=== PATIENT | female | born 1945 | race Caucasian/White ===

== ENCOUNTER 2024-12-19 09:29 | Outpatient (REF) | payer MEDICARE, OTHER, SELFPAY ==
--- NOTE | ~2024-12-19 | XR_ITS ---
EXAMINATION: XR BILATERAL HIPS WITH AP PELVIS CLINICAL INFORMATION: M25.559 - Pain in unspecified hip COMPARISON: None available. TECHNIQUE: AP and frog-leg lateral views of each hip and an AP view of the pelvis. FINDINGS: Normal bone mineralization. No fracture or dislocation. No suspicious bone lesion. End-stage arthrosis of both hip joints with complete joint space loss, subchondral sclerosis and cystic changes, sclerosis and remodeling/flattening of the femoral heads . [id number] appearance. This may be inflammatory as there is a generalized paucity of productive bony changes seen. There are degenerative changes in both SI joints and the lower lumbar spine. There are vascular calcifications throughout the soft tissues. 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 Electronically signed by: Gasper Crespo MD 12/22/2024 02:15 PM EDT
--- NOTE | ~2024-12-19 | XR_ITS ---
EXAMINATION: X-ray lumbar spine 4 views. CLINICAL INFORMATION: Spinal stenosis, lumbar region. No claudication. TECHNIQUE: AP and lateral views during the neutral flexion and extension position. COMPARISON: None FINDINGS: Facet joint hypertrophy on the left side of L4-5 and L5-S1. Marginal osteophyte formation and endplate sclerosis and decreased intervertebral disc height at L4-5 and to a lesser extent throughout the vertebral bodies of the lumbar spine and lower thoracic spine. S-shaped curvature of the lower lumbar spine. No acute cortical disruption. No gross malalignment. Vascular calcifications, aorta. No lytic or blastic lesions. XR/XR lumbar spine 4V min IMPRESSION: Multilevel thoracolumbar spondylosis more conspicuous at L4-5 and L5-S1 levels without acute fracture or listhesis. Electronically signed by: Margarito Atkins MD 12/22/2024 02:16 PM EDT
--- OUTSIDE RECORDS SUMMARY | 2024-12-19 10:30 | XMS_ITS | Continuity of Care Document ---
Author Organization [facility] [address] [place] [address] Phone [phone] Care Team Providers Care Toxicologist Name Role Phone Heike Collazo M.D Care Team Informa tion Home Health Care Physician [phone] Problems Active Problems Provider Date Peripheral arterial [...] SIG Qnty Indications Order ing Provider Date Xuhkrnus7dp/0.5ML Solution Pen-Inject inject 1 pen(5mg) under the skin every week dx: e11.9 2ml Kenroy Méndez M.D. 02/21/2024 Jhhzaoj53do Tablets Kenroy Méndez M.D. 10/22/2023 Basaglar Rvqpgaz533Cnej/ML Solution Pen-Inject Inject 30 Units Subcutaneously Every Night For 30 Days 45units E11.9 Kenroy Méndez M.D. 05/31/2022 Novolog Maptwgg228Bura/ML Solution Pen-Inject Inject 4-6 Units Subcutaneously Once A Day 15units E11.Florence Méndez M.D. 05/31/2022 Losartan Dzsgoghib87mw Tablets Take 1 Tablet By Mouth Every Day Unknown Pravastatin Ejphvj16qo Tablets Take 1 Tablet By Mouth Every Day Unknown Aspirin Low Ukqo76ba Tablets DR Take 1 Tablet By Mouth Every Day Unknown Vital Signs Date Vital Result Comment 02/21/2024 2:00pm BP Systolic 166 mmHg BP Diastolic 58 mmHg Heart Rate 81 /min Height 65 inches 5'5 Weight 261.00 lb BMI (Body Mass Index) 43.4 kg/m2 Results Test Acquired Date Facility Test Result H/L Range N ote Hemoglobin A1c 06/23/2024 [facility] [address] [address] [phone] Hemoglobin A1c <pending> Urine Microalb+Creat+Ra qian RDM 06/23/2024 [facility] [address] [address] Urine Microalbumin Random <pending> Urine Microalbumin/Crea t [...] 2 diabet es mellitus without complications Z79.4 nurse auditor (current) use of insulin M19.90 Unspecified osteoart hritis, unspecified site Z98.890 Other specified post procedural states Z95.2 Presence of prosthet ic heart valve E78.00 Pure hypercholestero lemia, unspecified I25.89 Other forms of chron ic ischemic heart disease Assessments Date Code Description Provider 06/23/2024 E11.9 Type 2 diabetes mellitus wit hout complications ARIANNE Arroyo 06/23/2024 Z79.4 nurse auditor (current) use of i nsulin ARIANNE Arroyo [...] Urine Microalb+Creat+Ratio RDM, Ordered: 06/23/24 * Z79.4 nurse auditor (current) use of insulin * M19.90 Osteoarthritis * Z98.890 History of carotid endarterectomy * Z95.2 History of bioprosthetic transcatheter aortic valve implantation * E78.00 Hypercholesterolemia * I25.89 Asymptomatic coronary heart disease Functional Status Description No Information Available Mental Status Description No Information Available Referrals Description No Information Available
--- OUTSIDE RECORDS SUMMARY | 2024-12-19 10:30 | XMS_ITS | Clinical Summary ---
Author Organization [facility] Address [address] [facility] [address] [place] [address] Phone Care Team Providers Care Brand Designer Name Role Phone Heike Baird MD Primary [...] PM EDT) Hemoglobin A1C 6.4(H) (4.0-5.6) % [facility] Comment: MONITORING: In known diabetic patients, hemoglobin A1c targets should be discussed with health care provider. DIAGNOSTIC USE: ??The [place] Diabetes Association (ADA) and the World Health [...] Supplement 1 Testing performed or reported by [facility], a Service of [facility], [address] [place] [address] Ge Boswell MD, Vp [employer] [facility]# [id number] Blood (Blood, Venous) 03/23/2022 2:02 PM EDT 03/23/2022 2:12 PM EDT Wilian Sol MD LAB BLOOD ORDERABLES Final Re sult [facility] from Last 3 Months or Most Recently Relevant to Health Maintenance Insurance Medicare [facility] Medicare Unicare Care Teams Brand Designer Relationship Specialty Start Date End Date Heike Baird MD PCP - General Internal Medicine 03/21/23
--- OUTSIDE RECORDS SUMMARY | 2024-12-19 10:30 | XMS_ITS | Clinical Summary ---
Author Organization [address] [facility] Address [address] [place] [address] Phone Care Team Providers Care Ux Ui Designer Name Role Phone Heike Baird MD Primary Care Prov ider Allergies Active [...] replacement ) 02/15/2022 Overview (06/13/2024): Done at [facility] on 02/08/22 with KM - indications: atigue, [...] a further discussion with Dr. Méndez, her destaticizer feeder. Assessment & Plan (12/08/2024 11:48 AM EDT): [...] neuropathy, without long-term current use of insulin ([facility] V24, [facility] V28) 03/30/2009 Encounters Date Type Department Care Team Description 12/10/2024 1:45 PM EDT Consult Urogynecology - [address] [phone] Brenda Zambrano MD Postmenopausal bleeding (Primary Dx); Endometrial polyp 12/08/2024 11:20 AM EDT Consult [facility] Cardiology [facility] - [facility] [address] [facility] [address] [place] [phone] Bella Altamirano MD Coronary artery disease involving [place] coronary artery of [place] heart with other form of angina pectoris ([facility] V24) (Primary Dx); Congestive heart failure, unspecified HF chronicity, unspecified heart failure type ([facility] V24, [facility] V28); S/P TAVR (transcatheter aortic valve replacement); Pre-op evaluation 12/04/2024 10:00 AM EDT Consult Adult Medicine - [place] [address] [place] [phone] Heike Colby MD Preop examination (Primary Dx); Uterine polyp 12/01/2024 Telephone [facility] Cardiology [facility] - [facility] [address] [facility] [address] [place] [phone] Bella Altamirano MD Pre-op Visit 11/25/2024 Telephone Urogynecology - [address] [phone] Marti Martin MA scheduling conflict 11/24/2024 Telephone Urogynecology - [address] [phone] Marti Martin MA appt. change 11/13/2024 Telephone Adult Medicine - [place] [address] [place] [phone] Tanna Rodrigues, RANDY annual wellness visit scheduling 10/27/2024 8:20 AM EST Office Visit Endocrinology - [address] [phone] Rosa Maria Johansen PA Diabetes 1.5, managed as type 2 ([facility] V24, [facility] V28) (Primary Dx); Hyperlipidemia, unspecified hyperlipidemia type; Stage 3a chronic kidney disease ([facility] V24, [facility] V28); Hypertension, unspecified type 10/27/2024 Telephone Endocrinology - [address] [phone] Rosa Maria Johansen PA Medication Problem 10/24/2024 12:43 PM EST - 10/24/2024 11:59 PM EST [facility] [address] [phone] Other screening mammogram Discharge Disposition: Home or Self Care 10/13/2024 Telephone Adult Medicine [facility] [address] [place] [address] Bibi Becker LPN 10/07/2024 Telephone Adult Medicine [facility] [address] [place] [address] Tanna Rodrigues, RN urinary issues 09/29/2024 Telephone Urogynecology - [address] [phone] Marti Martin MA schedule surgery 09/29/2024 Telephone Urogynecology - [address] [phone] Marti Martin MA schedule surgery 09/23/2024 Telephone Urogynecology - [address] [phone] Brenda Zambrano MD from Last 3 Months [...] PREVIOUS SURGERY OTHER SURGICAL HISTORY 02/08/2022 PROCEDURE: ID TRANSCATHETER TRANSAPICAL REPLACEMT AORTIC VALVE; COMMENT: Transfemoral TAVR, aortic valve replacment. OTHER SURGICAL HISTORY 01/09/2024 Right PROCEDURE: ID TEAEC W/PATCH GRF CAROTID VERTB SUBCLAV NECK INC OTHER SURGICAL HISTORY 01/09/2024 Right PROCEDURE: ID BX/EXC LYMPH NODE OPEN DEEP CERVICAL NODE [...] care for your loved ones. For example, salesperson children's shoes or elderly care for an older adult? [...] EDT Office Visit Adult Medicine - [address] [phone] Heike Baird MD [address] [place] [address] 12/29/2024 9:30 AM EDT Hospital Encounter [address] [phone] Brenda Zambrano MD [address] [place] [address] 12/29/2024 9:30 AM EDT - 12/29/2024 11:00 AM EDT Surgery [address] [phone] Brenda Zamrbano MD [address] [place] [address] HYSTEROSCOPY [13190 (CPT??)] 01/14/2025 3:00 PM EDT Office Visit Urogynecology [address] [phone] Brenda Zambrano MD [address] [place] [address] 01/27/2025 8:20 AM EDT Office Visit Endocrinology - [facility] [address] [place] [address] Rosa Maria Johansen PA [address] [place] [address] 04/06/2025 8:30 AM EDT Ancillary Procedure [facility] [address] [place] [address] 05/14/2025 10:00 AM EDT Office Visit Vascular Surgery - [place] [address] [place] [address] Flores Verdugo PA [address] [place] [address] 06/23/2025 10:40 AM EDT Office Visit [facility] Cardiology [facility] [address] [facility] [address] [place] [address] Diana Harley, GIANNI [address] [place] [address] Scheduled Procedures Name Priority Associated Diagnoses Date/Ti [...] 11:08 AM EDT Coronary artery disease involving [place] coronary artery of [place] heart with other form of angina pectoris ([facility] V24) BASIC METABOLIC PANEL Routine 11/27/2024 3:09 PM EDT Diabetes 1.5, managed as type 2 ([facility] V24, [facility] V28) Stage 3a chronic kidney disease ([facility] V24, [facility] V28) CULTURE URINE Routine 11/27/2024 3:09 PM EDT Urinary tract infection without hematuria, site unspecified Frequency of urination MG MAMMO DIGITAL SCREENING W ARISTIDES BILAT Routine 10/24/2024 1:25 PM EST Other screening mammogram CULTURE URINE Routine 10/09/2024 11:43 AM EST Urinary tract infection HEMOGLOBIN A1C Routine 10/09/2024 11:10 AM EST Diabetes 1.5, managed as type 2 ([facility] V24, [facility] V28) LIPID PANEL WITH REFLEX TO DIRECT [...] GEMUSE QTc 435 ms GEMUSE P Wave [place] 58 degrees GEMUSE R [place] 0 degrees GEMUSE T [place] 60 degrees GEMUSE ECG Interpretation Normal sinus [...] of2 resultswithin the time period is included. [facility] Culture, Urine 50,000-99,000 CFU/mL Mixed bacterial morphotypes present suggestive of possible contamination during collection. Suggest appropriate recollection if clinically indicated. 11/28/2024 1:[address] [facility] Urine Urine specimen obtained by clean catch procedure / Unknown Non-blood Collection / Unknown 11/27/2024 3:09 PM EDT 11/27/2024 3:09 PM EDT Mariann Guy NP LAB MICROBIOLOGY - GENERAL ORDERABLES Final Result [facility] [address] [place] [address], [place] [phone] * (ABNORMAL) Basic metabolic panel (11/27/2024 3:09 PM EDT) [facility] Sodium 139 133 - 145 mmol/L LAB CHEMISTRY METHOD 11/27/2024 6:34 PM [facility] Potassium 5.4 3.5 - 5.5 mmol/L LAB CHEMISTRY METHOD 11/27/2024 6:34 PM [facility] Chloride 108 96 - 110 mmol/L LAB CHEMISTRY METHOD 11/27/2024 6:34 PM [facility] CO2 25 21 - 32 mmol/L LAB CHEMISTRY METHOD 11/27/2024 6:34 PM [facility] Anion Gap 6 3 - 11 LAB CHEMISTRY METHOD 11/27/2024 6:34 PM [facility] Glucose 103(H) 70 - 100 mg/dL LAB CHEMISTRY METHOD 11/27/2024 6:34 PM [facility] BUN 27(H) 5 - 25 mg/dL LAB CHEMISTRY METHOD 11/27/2024 6:34 PM [facility] Creatinine 1.08 0.50 - 1.10 mg/dL LAB CHEMISTRY METHOD 11/27/2024 6:34 PM [facility] eGFR 53(L) >=60 mL/min/1. 73m2 LAB CHEMISTRY METHOD 11/27/2024 6:34 PM [facility] Comment:Calculation based on the??Chronic Kidney Disease Epidemiology Collaboration (CKD-EPI) equation refit??without adjustment for race. BUN/Creatinine Ratio 25.0 LAB CHEMISTRY METHOD 11/27/2024 6:34 PM [facility] Calcium 9.2 8.5 - 10.5 mg/dL LAB CHEMISTRY METHOD 11/27/2024 6:34 PM [facility] Blood Venous blood specimen / Unknown Venipuncture / Unknown 11/27/2024 3:09 PM EDT 11/27/2024 3:09 PM EDT us Rosa Maria ACUÑA LAB BLOOD ORDERABLES Final Resul t [facility] [address] [place] [address], * MG Mammo Digital Screening w Aristides [...] Signed Date: 10/27/2024 13:40 ET Workstation ID: [id number] Transcribed By: Self Edit Transcribed Date: 10/27/2024 [...] year. Mammography location: [facility] [address] [place], [address] -------- FINAL REPORT -------- Dictated By: Aftab Spaulding Dictated Date: 10/24/2024 14:42 ET Assigned Physician: Aftab Spaulding Reviewed and Electronically Signed By: Aftab Spaulding Signed Date: 10/24/2024 14:58 ET Workstation ID: [id number] Transcribed By: Self Edit Transcribed Date: 10/24/2024 [...] LAB CHEMISTRY METHOD 10/09/2024 2:[address] [facility] Mean Bld Glu Estim. 128 mg/dL LAB CHEMISTRY METHOD 10/09/2024 2:08 PM [facility] Blood Venous blood specimen / Unknown Venipuncture / Unknown 10/09/2024 11:10 AM EST 10/09/2024 11:10 AM EST Rosa Maria ACUÑA LAB BLOOD ORDERABLES Final Resul t [facility] [address] [place] [address], [place] [phone] * Lipid panel with reflex to direct LDL (09/19/2024 11:41 AM EST) Cholesterol 140 0 - 200 mg/dL LAB CHEMISTRY METHOD 09/19/2024 6:[address] [facility] Triglycerides 81 0 - 150 mg/dL LAB CHEMISTRY METHOD 09/19/2024 6:19 PM [facility] HDL 59 >=40 mg/dL LAB CHEMISTRY METHOD 09/19/2024 6:[address] [facility] LDL Calculated 65 0 - 100 mg/dL LAB CHEMISTRY METHOD 09/19/2024 6:[address] [facility] VLDL Cholesterol Juma 16.2 mg/dL LAB CHEMISTRY METHOD 09/19/2024 6:[address] [facility] Non HDL Chol. (LDL+VLDL) 81 <145 mg/dL LAB CHEMISTRY METHOD 09/19/2024 6:[address] [facility] Chol/HDL Ratio 2.4 0.0 - 4.4 LAB CHEMISTRY METHOD 09/19/2024 6:[address] [facility] Blood Venous blood specimen / Unknown Venipuncture / Unknown 09/19/2024 11:41 AM EST 09/19/2024 11:41 AM EST Bella Altamirano MD LAB BLOOD ORDERABLES Final Resul t [facility] [address] [place] [address], * DXA BONE DENSITY STUDY 1+ SITS [...] bone mineral density by WHO criteria. The [facility] Department of Internal Medicine recommends using National [...] alternative screening schedule based on ole Conrad., [facility] September 14, 2011 for patients with [...] bone mineral density by WHO criteria. The [facility] Department of Internal Medicine recommendsusing National Osteoporosis [...] screening schedule based on erica Conrad al., [facility] for [facility] with [facility] (based [...] esult * Urine Albumin Creatinine Ratio (05/10/2023) [facility] Urine Albumin Creatinine Ratio ABSTRACTED Historical Provider HEALTH MAINTENANCE Final Result * Hepatitis C Screening (05/25/2017) [facility] Hepatitis C Screening ABSTRACTED Historical Provider HEALTH MAINTENANCE Final Result from Last 3 Months or Most Recently Relevant to Health Maintenance [facility] Directives Documents on File Type Date Recorded Patient Life Advisor Expl anation Health Care Decision (hx) 01/09/2024 HE ALTH CARE PROXY Health Care Decision (hx) 01/09/2024 HE ALTH CARE PROXY Health Care Decision (hx) 01/09/2024 HE ALTH CARE PROXY Care Teams Ux Ui Designer Relationship Specialty Start Date End Date Heike Baird MD [address] [place] [id number] PCP - General Internal Medicine 08/17/20
== END 2024-12-19 09:30 | disposition home or self-care (01) ==
LOC: HO.HOSX 09:29
PROVIDERS: PCP Internal Medicine; Visit Provider Physician Assistant
DX: M48.061 Spinal stenosis, lumbar region without neurogenic claudication (principal); M25.559 Pain in unspecified hip
CPT/HCPCS: 72110; 73522; 99202

== ENCOUNTER 2024-12-19 09:29 | Outpatient (AMB) | payer MEDICARE, OTHER, SELFPAY ==
--- NOTE | 2024-12-19 09:32 | HO.SPINEOV ---
Vital Signs 12/19/24 09:37 Height 5 ft 5 in Weight 236 lb BMI 39.3 Intake Visit Reasons: lumbar radiculopathy Intake Note: Ms. Castrejon is here today c/o Low back pain with difficulty walking, MRI at [facility]. 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 She is a very nice 79-year-old female presents to the office today for evaluation of pain that started about 6 months ago. She is a difficult historian so getting great details was not easy, but she reports pain in the middle of her back that goes down her anterior thighs and into her buttocks when she stands and walks and gets better when she sits down. She underwent some physical therapy and also had a cortisone injection L5-S1 epidural at Dr. Beltran's office. She takes Tyleno and diclofenac l to help with the pain. She underwent an MRI at the [facility] and this shows moderate to severe stenosis at L4-5. PMH: She has history of coronary artery disease, mitral regurgitation, she had a trans catheter aortic valve replacement done 3 years ago, congestive heart failure with preserved ejection fraction, diabetes with an A1c recently of 6, she takes an insulin sliding scale and Lantus as needed, chronic kidney disease stage 3, she has a uterine polyp for which she is due for an upcoming surgery. She denies any history of stroke but there is reports of right carotid artery stenosis in her [facility] record. There is no history of pulmonary disease according to the patient, liver disease, coagulopathies, major abdominal surgery or previous lumbar surgery Social hx: She smokes a few cigarettes a day, does not use any alcohol or recreational drugs Medications: Tylenol, baby aspirin, diclofenac, Nexium, insulin, Mounjaro, losartan, pravastatin Allergies: Amoxicillin Physical exam: Awake alert oriented, crying at times because of the pain, she very slowly can stand up out of a chair and get to a vertical position without help but she is and a lot of pain doing so. She has intact strength with diminished reflexes bilaterally at the patella. Positive pain in both hips with internal and external rotation, worse on the right. Imaging review: Lumbar MRI done at [facility] in July 2024 shows moderate to severe stenosis at L4-5 worse on the left lateral recess. Impression: 79-year-old female presents with progressive centralized low back pain going down into her anterior thighs and into her buttocks. It is aggravated with standing walking and goes away for the most part when she sits down. She is a difficult historian, she did change her story multiple times. Her MRI does show that she has moderate to severe stenosis at L4-5. I am not sure that it could explain all of her symptoms. She did however respond nicely for about a month to an L5-S1 epidural steroid injection by Dr. Beltran. I am going to get a set of x-rays of her hips and low back in the standing position. I will review these with Dr. Belle and see if he thinks there is enough stenosis there to explain the symptoms and warrant decompression. Thank you for allowing us to care for your patient. The total time spent with this visit with this patient was 45 minutes reviewing history, physical exam, lumbar imaging review, and implementation of treatment plan or further diagnostic testing Wilian Belle MD,PhD [facility] Orders: Orders XR lumbar spine 4V min Today M48.061 - Spinal stenosis, lumbar region without neurogenic claudication XR hips LEXY min 3V Today M25.559 - Pain in unspecified hip Coding Level of Care Code New Pt Level 4 (07846) Diagnoses Lumbar stenosis M48.061 Hip pain M25.559
[2024-12-19 09:37] VITALS: BMI 39.3
--- OUTSIDE RECORDS SUMMARY | 2024-12-19 09:41 | XMS_ITS | Continuity of Care Document ---
Author Organization [facility] [address] [place] [address] Phone [phone] Care Team Providers Care Machinery Rigger Name Role Phone Heike Collazo M.D Care Team Informa tion Air Lift Operator [phone] Problems Active Problems Provider Date Peripheral arterial disease Johny Berger Onset: 03/06/2023 Type 2 diabetes mellitus Kenroy Méndez M.D. O nset: 03/06/2023 Essential hypertension Kenroy Méndez M.D. Ons et: 03/06/2023 Hypercholesterolemia Kenroy Méndez M.D. Onset : 03/06/2023 Aortic valve stenosis Kenroy Méndez M.D. Onse t: 03/06/2023 Obesity Kenroy Méndez M.D. Onset: 06/2023 History of carotid endarterectomy Kenroy hall M.D. Onset: 02/21/2024 History of bioprosthetic tra nscatheter aortic valve implantation Kenroy Méndez M.D. Onset: 03/06/2023 Asymptomatic coronary heart disease Kenroy mayorga M.D. Onset: 03/06/2023 Osteoarthritis Kenroy Méndez M.D. Onset: 06/2023 Insulin treated type 2 diabetes mellitus Kenroy jha M.D. Onset: 03/06/2023 Social History Type Date Description Comments Sex Unknown Lives With Grandson ETOH Use Rarely consumes alcohol Tobacco Use Start: Unknown End: Unknown Patient is a former smoker Quit x 1 year, but does have occasional one with wine Allergies and adverse reactions Active Allergies Criticality Reaction Severity Comments Date Amoxicillin Unable to assess criticality 03/06/2023 Bee Sting Unable to assess criticality 03/06/2023 Medications Active Medications SIG Qnty Indications Order ing Provider Date Lyqfkdxc0sm/0.5ML Solution Pen-Inject inject 1 pen(5mg) under the skin every week dx: e11.9 2ml Kenroy Méndez M.D. 02/21/2024 Cwuuczl34mk Tablets Kenroy Méndez M.D. 10/22/2023 Basaglar Hrkeazu012Cnkk/ML Solution Pen-Inject Inject 30 Units Subcutaneously Every Night For 30 Days 45units E11.9 Kenroy Méndez M.D. 05/31/2022 Novolog Tthzhmh473Fshc/ML Solution Pen-Inject Inject 4-6 Units Subcutaneously Once A Day 15units E11.Florence Méndez M.D. 05/31/2022 Losartan Fuuqhgdjl85zf Tablets Take 1 Tablet By Mouth Every Day Unknown Pravastatin Amqrex20pu Tablets Take 1 Tablet By Mouth Every Day Unknown Aspirin Low Ykiu25ic Tablets DR Take 1 Tablet By Mouth Every Day Unknown Vital Signs Date Vital Result Comment 02/21/2024 2:00pm BP Systolic 166 mmHg BP Diastolic 58 mmHg Heart Rate 81 /min Height 65 inches 5'5 Weight 261.00 lb BMI (Body Mass Index) 43.4 kg/m2 Results Test Acquired Date Facility Test Result H/L Range N ote Hemoglobin A1c 06/23/2024 [facility] [address] [address] [phone] Hemoglobin A1c <pending> Urine Microalb+Creat+Ra qian RDM 06/23/2024 [facility] [address] [address] [phone] Urine Microalbumin Random <pending> Urine Microalbumin/Crea t Rando <pending> Urine Creatinin e Random <pending> Glucose Fingerstick 02/21/2024 Inhouse Glucose Fingerstick 104 Hemoglobin A1c 02/21/2024 Inhouse Hemoglobin A1c 6.1% Glucose Fingerstick 10/22/2023 Inhouse Glucose Fingerstick 151 Hemoglobin A1c 10/22/2023 Inhouse Hemoglobin A1c 6.5% Glucose Fingerstick 06/19/2023 Inhouse Glucose Fingerstick 120 Glucose Fingerstick 03/06/2023 Inhouse Glucose Fingerstick 126 Medical Devices Description No Information Available Encounters Type Date Location Provider Dx Diagnosis Office Visit 06/23/2024 2:15p Main Office ARIANNE Arroyo E11.9 Type 2 diabet es mellitus without complications Z79.4 terminal operations manager (current) use of insulin M19.90 Unspecified osteoart hritis, unspecified site Z98.890 Other specified post procedural states Z95.2 Presence of prosthet ic heart valve E78.00 Pure hypercholestero lemia, unspecified I25.89 Other forms of chron ic ischemic heart disease Assessments Date Code Description Provider 06/23/2024 E11.9 Type 2 diabetes mellitus wit hout complications ARIANNE Arroyo 06/23/2024 Z79.4 terminal operations manager (current) use of i nsulin ARIANNE Arroyo 06/23/2024 M19.90 Osteoarthritis ARIANNE Wylie 06/23/2024 Z98.890 History of carotid endartere ctomy ARIANNE Arroyo 06/23/2024 Z95.2 History of biopr osthetic transcatheter aortic valve implantation ARIANNE Arroyo 06/23/2024 E78.00 Hypercholesterolemia ARIANNE Arroyo 06/23/2024 I25.89 Asymptomatic coronary heart disease ARIANNE Arroyo Plan of Treatment 06/23/2024 - ARIANNE Arroyo* E11.9 Type 2 diabetes mellitus without complications* New Labs:* Hemoglobin A1c, Ordered: 06/23/24 * Urine Microalb+Creat+Ratio RDM, Ordered: 06/23/24 * Z79.4 terminal operations manager (current) use of insulin * M19.90 Osteoarthritis * Z98.890 History of carotid endarterectomy * Z95.2 History of bioprosthetic transcatheter aortic valve implantation * E78.00 Hypercholesterolemia * I25.89 Asymptomatic coronary heart disease Functional Status Description No Information Available Mental Status Description No Information Available Referrals Description No Information Available
--- OUTSIDE RECORDS SUMMARY | 2024-12-19 09:42 | XMS_ITS ---
Author Name [facility] Organization Unknown History of Medication Use Medication Directions Dispensed Refills Start Date End Date Stat insulin glargine,hum.rec.anlo g (Basaglar KwikPen U-100 Insulin) 100 unit/mL (3 mL) injection pen 26-28 Units at bedtime. 07/28/2024 active diclofenac (VOLTAREN) 50 mg EC tablet Take 1 tablet (50 mg total) by mouth 2 (two) times a day. 05/26/2024 active vibegron (Gemtesa) 75 mg tablet tablet Take 1 Tablet by mouth daily for 360 days. 07/18/2023 active pravastatin (PRAVACHOL) 20 mg tablet : TAKE 1 TABLET BY MOUTH EVERY DAY 06/18/2023 active Problems Problem Status Onset Date Problem Type Date of Resoluti on Source CAD (coronary artery disease) active 2021-12-19 [facility] Other specified health status active 2013-11-01 ProblemAct [facility] Aortic valve disorder active 2024-07-30 ProblemAct [facility] CHF (congestive heart failure) active 2022-01-19 ProblemAct [facility] Elevated troponin active 2022-02-15 ProblemAct [facility] Acute on chronic heart failure with preserved ejection fraction active 2022-02-15 ProblemAct [facility] Chronic kidney disease, stage 3 active 2022-02-15 ProblemAct [facility] Moderate mitral regurgitation active 2021-12-19 ProblemAct [facility] HTN (hypertension) active 2024-06-13 ProblemAct [facility] Anemia active 2022-02-15 ProblemAct [facility] Controlled type 2 diabetes mellitus with diabetic neuropathy, without long-term current use of insulin active 2009-03-30 ProblemAct [facility] Stenosis of right carotid artery active 2023-07-27 ProblemAct [facility] S/P TAVR (transcatheter aortic valve replacement) active 2022-02-15 [facility]Act [facility] Allergic rhinitis active 2010-01-25 ProblemAct [facility] Pulmonary edema active 2021-12-[address] [facility] Myocardial injury active 2022-02-15 ProblemAct [facility] Obesity, Class III, BMI 40-49.9 (morbid obesity) active 2013-11-01 [facility]Act [facility] HLD (hyperlipidemia) active 2021-12-19 ProblemAct [facility] Acute on chronic combined systolic and diastolic CHF (congestive heart failure) active 2022-02-15 ProblemAct [facility] Immunizations Vaccine Date Source Lot Number Status Influenza trivalent, 0.5mL ( Fluad) 65yo and older 05[facility]/2022 [facility] Influenza Quadravalent, 0.5m l (Fluad) 65yo and older 06/01/2021 [facility] [id number] completed Influenza trivalent, 0.5mL ( Fluad) 65yo and older 05/22/2020 [facility] [id number] completed Influenza trivalent, 0.5mL ( Fluad) 65yo and older 05/12/2019 [facility] [id number] completed Pneumococcal polysaccharide 23 valent (Pneumovax 23) 2yo and older 05/12/2019 [facility] [id number] com pleted Influenza trivalent, 0.5mL ( Fluad) 65yo and older 05/24/2018 [facility] [id number] completed Zoster recombinant (Shingrix ) 19yo and older 05/24/2018 [facility] [id number] completed Zoster recombinant (Shingrix ) 19yo and older 03/06/2018 [facility] [id number] completed Influenza trivalent, 0.5mL ( Fluad) 65yo and older 05/15/2017 [facility] [id number] completed Pneumococcal conjugate 13 va lent (Prevnar 13, PCV13) 2mo and older 05/15/2017 [facility] [id number] complet ed Pneumococcal conjugate 13 va lent (Prevnar 13, PCV13) 2mo and older 11/17/2016 [facility] [id number] complet ed Zoster Live 11/17/2016 [facility] [id number] completed Influenza trivalent, 0.5mL ( Fluad) 65yo and older 07/17/2014 [facility] [id number] completed Pneumococcal polysaccharide 23 valent (Pneumovax 23) 2yo and older 07/17/2014 [facility] [id number] com pleted Influenza trivalent, 0.5mL ( Fluad) 65yo and older 06/04/2013 [facility] [id number] completed Zoster Live 09/24/2012 [facility] [id number] completed
--- OUTSIDE RECORDS SUMMARY | 2024-12-19 09:42 | XMS_ITS | Clinical Summary ---
Author Organization [facility] Address [address] [place] [address] Phone Care Team Providers Care Media Planner Name Role Phone Heike Baird MD Primary Care Pr ovider Allergies Active Allergy Reactions Criticality Noted Date Comments Amoxicillin 01/26/2022 Other reaction(s): pt unsure of reaction Bee Venom Swelling 03/30/2009 Localized - takes benedryl Medications Aspirin Low Dose 81 MG EC tablet Take 81 mg by mouth 1 (one) time each day 2 Active atorvastatin (LIPITOR) 80 MG tablet Take 80 mg by mouth 1 (one) time each day 2 Active furosemide (LASIX) 40 MG tablet Take 40 mg by mouth 1 (one) time each day 2 Active insulin aspart (NovoLOG FLEXPEN) 100 UNIT/ML injection Novolog Flexpen U-100 Insulin aspart 100 unit/mL (3 mL) subcutaneous Active insulin glargine (Basaglar KwikPen) 100 UNIT/ML injection Basaglar KwikPen U-100 Insulin 100 unit/mL (3 mL) subcutaneous Active nystatin (MYCOSTATIN) ointment 2 Active Active Problems Problem Noted Date Diagnosed Date Aortic valve stenosis 03/21/2022 Hypertensive disorder 03/21/2022 Obese class II 03/21/2022 Type 2 diabetes mellitus 03/21/2022 Acute on chronic combined sy stolic and diastolic heart failure 02/15/2022 03/19/2023 Acute on chronic heart failu re co-occurrent with normal ejection fraction 02/15/2022 03/19/2023 Anemia 02/15/2022 03/19/2023 Myocardial injury 02/15/2022 03/19/2023 Cardiac enzyme or marker above reference range 0 02/15/2022 Chronic kidney disease, stage 2 (mild) Type 2 diabetes mellitus wit h diabetic chronic kidney disease 01/26/2022 Acute nontraumatic kidney injury 01/26/2022 Other iron deficiency anemia 01/26/2022 Congestive heart failure 01/19/2022 023 Overview (03/19/2023): Last Assessment & Plan: Euvolemic. Continue low-dose furosemide. Pulmonary edema 12/28/2021 03/19/2023 Coronary arteriosclerosis 12/19/20212022 Overview (03/19/2023): Last Assessment & Plan: We will restart low-dose statin. Hyperlipidemia 12/19/2021 03/19/2023 Mitral valve regurgitation 12/19/202103/19 Allergic rhinitis, cause unspecified 01/25/2010 03/19/2023 Resolved Problems Problem Noted Date Diagnosed Date Resolved Date Severe obesity 01/26/2022 03/21/2022 Immunizations Immunization Administration Dates Next Due Pfizer SARS-COV-2 05/26/2021,10/31/2020,10/10/19 Pneumococcal Conjugate 13-Valent 05/15/2017,10/26 Pneumococcal Polysaccharide 05/12/2019, 4 Shingrix 05/24/2018,03/06/2018 Social History Tobacco Use Types Packs/Day Years Used Date Smoking Tobacco: Never Smokeless Tobacco: Never Tobacco Cessation:Counseling Given: Not Answered Alcohol Use Standard Drinks/Week Comments Not Currently 0 (1 standard drink = 0.6 oz pur e alcohol) Comments Unknown Sex and Gender Information Value Date Recorded Sex Assigned at Not on file Legal Sex Female 4:05 PM EDT Gender Identity Not on file Sexual Orientation Not on file Last Filed Vital Signs Vital Sign Reading Time Taken Comments Blood Pressure 122/72 03/21/2023 1:38 PM EDT Pulse 69 03/21/2023 1:38 PM EDT Temperature - - Respiratory Rate - - Oxygen Saturation 96% 03/21/2023 1:38 PM EDT Inhaled Oxygen Concentration - - Weight 114 kg (252 lb 4.8 oz) 03/21/2023 1:38 PM EDT Height - - Body Mass Index - - Plan of Treatment Health Maintenance Due Date Last Done Comments Diabetes: Ophthalmology Exam 01/26/2022 Diabetes: Pedal Pulse Checked 01/26/2022 Diabetes: Sensory Foot Exam 01/26/2022 Diabetes: Visual Foot Exam 01/26/2022 Diabetes: Hemoglobin A1C 05/10/2023 02/07/2023, 02/25 Influenza Vaccine (Season Ended) 2025 05/22/2020, 05/12/2019, 05/24/2018, Additional history exists Pneumococcal Vaccine: 50+ Years Completed 05/12/2019, 05/15/2017, 11/17/2016, Additional history exists Hepatitis B Vaccine Aged Out No longe r eligible based on patient's age to complete this topic Procedures Procedure Name Priority Date/Time Associated Diagnosis Comments HEMOGLOBIN A1C Routine 03/23/2022 2:02 PM EDT Chronic kidney disease, stage 2 (mild) Acute injury of kidney (HCC) from Last 3 Months or Most Recently Relevant to Health Maintenance Results * (ABNORMAL) Hemoglobin A1c (03/23/2022 2:02 PM EDT) Hemoglobin A1C 6.4(H) (4.0-5.6) % [facility] Comment: MONITORING: In known diabetic patients, hemoglobin A1c targets should be discussed with health care provider. DIAGNOSTIC USE: ??The [place] Diabetes Association (ADA) and the World Health Organization (WHO) recommend the use of HbA1c to diagnose diabetes using a threshold of 6.5%. Patients who have an HbA1c between 5.7% and 6.4% are considered at increased risk for developing diabetes in the future. CAUTION: Falsely low HbA1c results may be observed in patients with hemolytic anemia, homozygous forms of abnormal hemoglobin (e.g. SS, CC, SC), , recent blood loss or hemoglobin F greater than 7%. Fructosamine may be used as an alternate test in these cases. REFERENCE: ADA: Standards of Medical Care in Diabetes 2020, The Journal of Clinical and Applied Research and Education Volume 43, Supplement 1 Testing performed or reported by [facility], a Service of [facility], [address] [place] [id number] Ge Boswell MD, Green Building Engineer [facility]# [id number] Blood (Blood, Venous) 03/23/2022 2:02 PM EDT 03/23/2022 2:12 PM EDT Wilian Sol MD LAB BLOOD ORDERABLES Final Re sult [facility] from Last 3 Months or Most Recently Relevant to Health Maintenance Insurance Medicare [facility] Medicare [employer] Care Teams Media Planner Relationship Specialty Start Date End Date Heike Baird MD PCP - General Internal Medicine 03/21/23
--- OUTSIDE RECORDS SUMMARY | 2024-12-19 09:42 | XMS_ITS | Clinical Summary ---
Author Organization [facility] Address [address] [place] [address] Phone Care Team Providers Care Student Ministry Pastor Name Role Phone Heike aBird MD Primary Care Prov ider Allergies Active Allergy Reactions Criticality Noted Date Comments Amoxicillin Unknown 02/15/2022 Bee Venom Protein (Honey Bee) Unknown 2023 Medications aspirin 81 mg EC tablet TAKE 1 TABLET BY MOUTH EVERY DAY 07/04/20 22 Active acetaminophen (TYLENOL ARTHRITIS PAIN ORAL) Take by mouth as needed. Active losartan (COZAAR) 50 mg tablet TAKE 1 TABLET BY MOUTH EVERY DAY 90 tablet 3 06/30/20 24 Active esomeprazole (NexIUM) [address] capsule Take 1 capsule (20 mg total) by mouth 1 (one) time each day before breakfast. Do not open capsule. Active diclofenac (VOLTAREN) 50 mg EC tablet Take 1 tablet (50 mg total) by mouth 2 (two) times a day. 05/26/20 24 Active mineral oil liquid Take by mouth. CBD oil Active nystatin (MYCOSTATIN) ointment APPLY TO AFFECTED AREA UP TO 4 TIMES DAILY NEEDED 30 g 5 08/05/20 24 Active blood-glucose sensor (FreeStyle Keyona 3 Sensor) device 1 EA. Box = Kit = EA Active insulin glargine,hum.r ec.anlog (Basaglar KwikPen U-100 Insulin) 100 unit/mL (3 mL) injection pen Use 15 Units at bedtime. 15 mL 2 10/28/19 25 Active insulin aspart (NovoLOG FlexPen) 100 unit/mL (3 mL) injection pen Use three times a day before meals <150: 0 units, 151-200: 4 units, 201-250: 6 units, 251-300: 8 units, 301-350: 10 units, 351-400: 12 units. 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 2 mL 5 12/10/19 25 Active furosemide (LASIX) 20 mg tablet Take 1 tablet (20 mg total) by mouth 1 (one) time each day. 04/29/20 24 025 Discontinued vibegron (Gemtesa) 75 mg tablet tablet Take 1 Tablet by mouth daily for 360 days. 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 2 mL 3 07/28/20 24 025 Discontinued miSOPROStoL (Cytotec) [address] 1 tablet against each cheek and allow to dissolve over 60 minutes. Wipe away remaining medication after 60 minutes. 2 tablet 09/02/19 25 025 Discontinued(Fo rmulary change) Active Problems Problem Noted Date Diagnosed Date Pre-op evaluation 12/08/2024 Assessment & Plan (12/08/2024 11:48 AM EDT): She has no symptoms to suggest coronary artery insufficiency or heart failure. She is cleared for planned surgical procedure from a cardiac standpoint view. No antibiotics for endocarditis prophylaxis is needed for this procedure. Aortic valve disorder 07/30/2024 Assessment & Plan (07/30/2024 10:26 AM EST): Status post TAVR in 2021. Overall, she is doing well and valve function is normal by physical exam. Will continue endocarditis prophylaxis. Will monitor valve structure and function by echocardiogram. HTN (hypertension) 06/13/2024 Stenosis of right carotid artery 07/27/2023 S/P TAVR (transcatheter aortic valve replacement ) 02/15/2022 Overview (06/13/2024): Done at [facility] on 02/08/22 with KM - indications: atigue, shortness of breath and was found to have heart failure in the setting of severe aortic stenosis and anemia Last Assessment & Plan: Doing well with normal valve function. Continue endocarditis prophylaxis. Assessment & Plan (12/08/2024 11:48 AM EDT): Valve function is normal by physical exam. Continue endocarditis prophylaxis. 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 Will continue current regimen. Expecting less requirement for diuretics after further weight loss by Paige. CHF (congestive heart failure) (CMS/HCC V24, CMS /HCC V28) 01/19/2022 Overview (06/13/2024): Last Assessment & Plan: Euvolemic. She is not taking furosemide we will remove medication from medication list. We had a discussion about weight loss. She may benefit from SGLT 2 inhibitor. I suggest her to have a further discussion with Dr. Méndez, her lining scrubber. Assessment & Plan (12/08/2024 11:48 AM EDT): She has been on Mounjaro for almost a year and has not lost a fair amount of weight. She is not overloaded. I will discontinue furosemide. Pulmonary edema 12/28/2021 Moderate mitral regurgitation 12/19/2021 Overview (06/13/2024): Last Assessment & Plan: Improved after TAVR. HLD (hyperlipidemia) 12/19/2021 Assessment & Plan (07/30/2024 10:26 AM EST): Will target LDL below 100 due to diabetes and nonobstructive coronary artery disease CAD (coronary artery disease) 12/19/2021 Overview (06/13/2024): Last Assessment & Plan: With nonobstructive lesions. LDL is at target. Assessment & Plan (12/08/2024 11:48 AM EDT): Orders: ECG 12 lead Assessment & Plan (07/30/2024 10:26 AM EST): Orders: ECG 12 lead Other specified health status 11/01/2013 Overview (06/13/2024): Eye exam Dr. Walter 04/07/19: Lenticular changes R eye. Follow up Dilated eye exam 6 months Obesity, Class III, BMI 40-49.9 (morbid obesity) 11/01/2013 Overview (06/13/2024): BMI 47.12 on 07/29/13. 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, without long-term current use of insulin ([facility] V24, [facility] V28) 03/30/2009 Encounters Date Type Department Care Team Description 12/10/2024 1:45 PM EDT Consult Urogynecology - [address] [phone] Brenda Zambrano MD Postmenopausal bleeding (Primary Dx); Endometrial polyp 12/08/2024 11:20 AM EDT Consult [facility] Cardiology [facility] [address] [facility] [address] [place] [phone] Bella Altamirano MD Coronary artery disease involving holy cross coronary artery of holy cross heart with other form of angina pectoris ([facility] V24) (Primary Dx); Congestive heart failure, unspecified HF chronicity, unspecified heart failure type (CMS/[facility] V24, CMS/[facility] V28); S/P TAVR (transcatheter aortic valve replacement); Pre-op evaluation 12/04/2024 10:00 AM EDT Consult Adult Medicine - [place] [address] [place] [phone] Heike Colby MD Preop examination (Primary Dx); Uterine polyp 12/01/2024 Telephone [facility] Cardiology [facility] [address] [facility] [address] [place] [phone] Bella Altamirano MD Pre-op Visit 11/25/2024 Telephone Urogynecology - [address] [phone] Marti Martin MA scheduling conflict 11/24/2024 Telephone Urogynecology - [address] [phone] Marti Martin MA appt. change 11/13/2024 Telephone Adult Medicine - [place] [address] [place] [phone] Tanna Rodrigues, RANDY annual wellness visit scheduling 10/27/2024 8:20 AM EST Office Visit Endocrinology - [address] [phone] Rosa Maria Johansen PA Diabetes 1.5, managed as type 2 ([facility] V24, [facility] V28) (Primary Dx); Hyperlipidemia, unspecified hyperlipidemia type; Stage 3a chronic kidney disease ([facility] V24, [facility] V28); Hypertension, unspecified type 10/27/2024 Telephone Endocrinology - [address] [phone] Rosa Maria Johansen PA Medication Problem 10/24/2024 12:43 PM EST - 10/24/2024 11:59 PM EST [facility] [address] [phone] Other screening mammogram Discharge Disposition: Home or Self Care 10/13/2024 Telephone Adult Medicine [facility] [address] [place] [phone] Bibi Becker LPN 10/07/2024 Telephone Adult Medicine [facility] [address] [place] [address] Tanna Rodrigues, RN urinary issues 09/29/2024 Telephone Urogynecology - [address] [phone] Marti Martin MA schedule surgery 09/29/2024 Telephone Urogynecology - [address] [phone] Marti Martin MA schedule surgery 09/23/2024 Telephone Urogynecology - [address] [phone] Brenda Zambrano MD from Last 3 Months Immunizations Name Administration Dates Next Due Influenza Quadravalent, 0.5m l (Fluad) 65yo and older 06/01/2021 Influenza trivalent, 0.5mL ( Fluad) 65yo and older 05/27/2022,05/22/2020,05/12/2019,05/24,05/15/2017,07/17/2014,06/04/2013 Pneumococcal conjugate 13 va lent (Prevnar 13, PCV13) 2mo and older 05/15/2017,11/17/2016 Pneumococcal polysaccharide 23 valent (Pneumovax 23) 2yo and older 05/12/2019,07/17/2014 Zoster Live 11/17/2016,09/24/2012 Zoster recombinant (Shingrix ) 19yo and older 05/24/2018,03/06/2018 Surgical History Surgery Date Site/Laterality Comments OTHER SURGICAL HISTORY PROCEDURE: DENIES PREVIOUS SURGERY OTHER SURGICAL HISTORY 02/08/2022 PROCEDURE: MO TRANSCATHETER TRANSAPICAL REPLACEMT AORTIC VALVE; COMMENT: Transfemoral TAVR, aortic valve replacment. OTHER SURGICAL HISTORY 01/09/2024 Right PROCEDURE: MO TEAEC W/PATCH GRF CAROTID VERTB SUBCLAV NECK INC OTHER SURGICAL HISTORY 01/09/2024 Right PROCEDURE: MO BX/EXC LYMPH NODE OPEN DEEP CERVICAL NODE Medical History Medical History Date Comments Historical Medical DX DX:HTN; CO MMENT: ?? Diverticulosis 06/04 DX:Diverticulosi s; COMMENT: at colonoscopy Family History Medical History Relation Name Comments No Known Problems Daughter Lung cancer Father Coronary artery disease Mother No Known Problems Son 1 No Known Problems Son 2 Heart attack Son 3 Relation Name Status Comments Daughter Alive arthritis Father (Age 65 yrs) lung c ancer Maternal Grandfather diabete s Maternal Grandmother Mother (Age 65yrs) heart d isease - Paternal Grandfather ? Paternal Grandmother ? Son 1 Alive well Son 2 Alive well Son 3 heart Social History Tobacco Use Types Packs/Day Years Used Date Smoking Tobacco: Some Days Cigarettes Smokeless Tobacco: Never Tobacco Cessation:Ready to Q uit: Not Asked; Counseling Given: Not Answered Alcohol Use Standard Drinks/Week Comments Yes 0 (1 standard drink = 0.6 oz pur e alcohol) Housing Instability Answer Date Recorde d Are you worried that in the next 2 months you may not have stable housing? No 07/07/2024 Food Access & Nutrition Answer Date Rec orded Do you have access to a vari ety of food including fruits and vegetables? Yes 07/07/2024 Access to Healthcare Answer Date Record ed Within the last 3 months, taylor martinez many times did you visit the emergency department for your medical care? 0 07/07/2024 Health Literacy Answer Date Recorded How often do you need to hav e someone help you when you read instructions, pamphlets, or other written material from your doctor or pharmacy? Never 07/07/2024 Caregiver: How often do you need to have someone help you when you read instructions, pamphlets, or other written material from your doctor or pharmacy? Not on file 07/07/2024 Financial Risk Answer Date Recorded How hard is it for you to pa y for the very basics like food, housing, medical care, and air conditioning / heating? Not very hard 07/07/2024 Transportation Answer Date Recorded Has the lack of transportati on kept you from meetings, work, or from getting things needed for daily living? No Has the lack of transportati on kept you from medical appointments or from getting medications? No 07/07/2024 Social Isolation Answer Date Recorded How often do you feel lonely or isolated from th ose around you? Never 07/07/2024 Food Risk Answer Date Recorded Within the past 12 months we worried whether our food would run out before we got money to buy more. Never true 07/07/2024 Within the past 12 months th e food we bought just didn't last and we didn't have money to get more. Never true 07/07/2024 Dependent Care Answer Date Recorded Do you need help finding or paying for care for your loved ones. For example, early childhood aide classroom or elderly care for an older adult? No 07/07/2024 Education Answer Date Recorded Do you think completing more education or training, like finishing a GED, going to college, or learning a trade, would be helpful for you? No 07/07/2024 Employment and Income Answer Date Recor ded During the last four weeks, have you been actively looking for work? No 07/07/2024 Living Situation Answer Date Recorded What is your living situation? 1 09/06/2023 Comments No Sex and Gender Information Value Date Recorded Sex Assigned at Female 10/23/2024 4:18 PM EST Legal Sex Female 5:39 AM EST Gender Identity Female 10/23/2024 4:18 PM EST Sexual Orientation Not on file Obstetrics History Para Term AB IAB SAB Ectopic Multiple Livin g Live Births 4 Last Filed Vital Signs Vital Sign Reading Time Taken Comments Blood Pressure 112/81 12/10/2024 1:28 PM EDT Pulse 71 12/10/2024 1:28 PM EDT Temperature 36.8 ??C (98.2 ??F) 12/04/2024 9:46 AM ED T Respiratory Rate 14 09/17/2024 1:51 PM EST Oxygen Saturation 97% 12/08/2024 10:59 AM EDT Inhaled Oxygen Concentration - - Weight 105 kg (232 lb) 12/10/2024 1:28 PM EDT Height 167.6 cm (5' 6 ) 12/10/2024 1:28 PM EDT Body Mass Index 37.45 12/10/2024 1:28 PM EDT Plan of Treatment Upcoming Encounters Date Type Department Care Team (Late st Contact Info) Description 12/23/2024 11:15 AM EDT Office Visit Adult Medicine - [address] [phone] Heike Baird MD [address] [place] [address] 12/29/2024 9:30 AM EDT Hospital Encounter [address] [phone] Brenda Zambrano MD [address] [place] [address] 12/29/2024 9:30 AM EDT - 12/29/2024 11:00 AM EDT Surgery [address] [phone] Brenda Zambrano MD [address] [place] [phone] HYSTEROSCOPY [[id number] (CPT??)] 01/14/2025 3:00 PM EDT Office Visit Urogynecology [address] [phone] Brenda Zambrano MD [address] [place] [address] 01/27/2025 8:20 AM EDT Office Visit Endocrinology - [place] [address] [place] [phone] Rosa Maria Johansen PA [address] [place] [address] 04/06/2025 8:30 AM EDT Ancillary Procedure [facility] [address] [place] [address] 05/14/2025 10:00 AM EDT Office Visit Vascular Surgery - [place] [address] [place] [address] Flores Verdugo PA [address] [place] [address] 06/23/2025 10:40 AM EDT Office Visit [facility] Cardiology [facility] [address] [facility] [address] [place] [address] Diana Harley, GIANNI [address] [place] [phone] Scheduled Procedures Name Priority Associated Diagnoses Date/Ti me HYSTEROSCOPY Postmenopausal bleeding Endometrial polyp 12/29/2024 9:30 AM EDT DILATION AND CURETTAGE Postmenopausal bleeding Endometrial polyp 12/29/2024 9:30 AM EDT POLYPECTOMY CERVIX Postmenopausal bleeding Endometrial polyp 12/29/2024 9:30 AM EDT Health Maintenance Due Date Last Done Comments Diabetes: Annual Foot Exam 01/25/1955 Diabetes: Annual Retina Eye Exam 01/25/1955 DTaP,Tdap,and Td Vaccines (1 - Tdap) 1965 RSV Immunization Adult Patients (1 - 1-dose 75+ series) 2021 Medicare Annual Wellness Visit 04/24/2024 04/24/2023 COVID-19 Vaccine ( season) 2024 05/26/2021, 10/31/2020, 10/10/2020 Diabetes: Annual Urine Albumin-Creatinine Ratio (uACR) 05/10/2024 05/10/2023 Diabetes: Blood Sugar Control Test (HGBA1C) 04/08/2025 10/09/2024, 07/07/2024, 05/10/2023, Additional history exists Influenza Vaccine (Season Ended) 2025 05/27/2022, 06/01/2021, 05/22/2020, Additional history exists Depression Screening 07/07/2025 07/07/2024 Falls Risk Assessment 07/07/2025 07/07/2024 Social Influencers of Health Screening 07/07/2025 07/07/2024 Diabetes: Annual GFR (Glomerular Filtration Rate) 11/27/2025 11/27/2024, 07/07/2024, 09/04/2023 Hypertension/CHF/CAD Annual BMP Blood Test 11/27/2025 11/27/2024, 07/07/2024, 09/04/2023 Cholesterol Screening (Lipid Panel) 09/19/2029 09/19/2024, 06/17/2024, 05/10/2023 Osteoporosis Screening (Bone Density Screening) 07/09/2033 07/09/2023 Hepatitis C Screening Completed 05/25/2017 Zoster Vaccines Completed 05/24/2018, 02/24, 11/17/2016, Additional history exists Pneumococcal Vaccine: 50+ Years Completed 05/12/2019, 05/15/2017, 11/17/2016, Additional history exists HIB Vaccines Aged Out No longer eligi ble based on patient's age to complete this topic HPV Vaccines Aged Out No longer eligi ble based on patient's age to complete this topic Hepatitis A Vaccines Aged Out No long er eligible based on patient's age to complete this topic Hepatitis B Vaccines Aged Out No long er eligible based on patient's age to complete this topic IPV Vaccines Aged Out No longer eligi ble based on patient's age to complete this topic MMR Vaccines Aged Out No longer eligi ble based on patient's age to complete this topic Meningococcal ACWY Vaccine Aged Out N o longer eligible based on patient's age to complete this topic Meningococcal B Vaccine Aged Out No l onger eligible based on patient's age to complete this topic RSV Immunization Patients Under 20 months Aged Out No longer eligible based on patient's age to complete this topic Varicella Vaccines Aged Out No longer eligible based on patient's age to complete this topic Goals Goal Patient Goal Type Associated Problems Recent Progress Patient-Stated? Author Increase activity/remain active within limits permitted by pain General Yes Analilia Clements, RN Note: Pt will continue with PT for reduction in pain to back and knees Procedures Procedure Name Priority Date/Time Associated Diagnosis Comments ECG 12-LEAD Routine 12/08/2024 11:08 AM EDT Coronary artery disease involving holy cross coronary artery of holy cross heart with other form of angina pectoris ([facility] V24) BASIC METABOLIC PANEL Routine 11/27/2024 3:09 PM EDT Diabetes 1.5, managed as type 2 ([facility]/HCC V24, [facility] V28) Stage 3a chronic kidney disease (CMS/[facility] V24, CMS/[facility] V28) CULTURE URINE Routine 11/27/2024 3:09 PM EDT Urinary tract infection without hematuria, site unspecified Frequency of urination MG MAMMO DIGITAL SCREENING W ARISTIDES BILAT Routine 10/24/2024 1:25 PM EST Other screening mammogram CULTURE URINE Routine 10/09/2024 11:43 AM EST Urinary tract infection HEMOGLOBIN A1C Routine 10/09/2024 11:10 AM EST Diabetes 1.5, managed as type 2 ([facility] V24, [facility] V28) LIPID PANEL WITH REFLEX TO DIRECT LDL Routine 09/19/2024 11:41 AM EST Hyperlipidemia, unspecified hyperlipidemia type DXA BONE DENSITY STUDY 1+ SITS AXIAL SKEL Routine 07/09/2023 1:34 PM EST Encounter for screening for osteoporosis HM URINE ALBUMIN CREATININE RATIO Routine 05/10/2023 HM HEPATITIS C SCREENING Routine 05/25/2017 from Last 3 Months or Most Recently Relevant to Health Maintenance Results * ECG 12 lead (12/08/2024 11:08 AM EDT) Ventricular Rate ECG 75 BPM GEMUSE Atrial Rate 75 BPM GEMUSE P-R Interval 142 ms GEMUSE QRS Duration 92 ms GEMUSE Q-T Interval 390 ms GEMUSE QTc 435 ms GEMUSE P Wave [place] 58 degrees GEMUSE R [place] 0 degrees GEMUSE T [place] 60 degrees GEMUSE ECG Interpretation Normal sinus rhythm Poor R wave progression Abnormal ECG When compared with ECG of 30-JUL-2024 08:49, No significant change was found Confirmed by Jonny ALTAMIRANO YUFENG ([id number]) on 12/08/2024 11:31:13 AM GEMUSE 12/08/2024 11:0 8 AM EDT 12/08/2024 11:31 AM EDT Bella Altamirano MD ECG ORDERABLES Final Result GEMUSE * Culture urine (11/27/2024 3:09 PM EDT) Only the most recent of2 resultswithin the time period is included. [facility] Culture, Urine 50,000-99,000 CFU/mL Mixed bacterial morphotypes present suggestive of possible contamination during collection. Suggest appropriate recollection if clinically indicated. 11/28/2024 1:45 PM EDT [facility] Urine Urine specimen obtained by clean catch procedure / Unknown Non-blood Collection / Unknown 11/27/2024 3:09 PM EDT 11/27/2024 3:09 PM EDT Mariann Guy NP LAB MICROBIOLOGY - GENERAL ORDERABLES Final Result [facility] [address] [place] [address], [place] [phone] * (ABNORMAL) Basic metabolic panel (11/27/2024 3:09 PM EDT) [facility] Sodium 139 133 - 145 mmol/L LAB CHEMISTRY METHOD 11/27/2024 6:34 PM [facility] Potassium 5.4 3.5 - 5.5 mmol/L LAB CHEMISTRY METHOD 11/27/2024 6:34 PM [facility] Chloride 108 96 - 110 mmol/L LAB CHEMISTRY METHOD 11/27/2024 6:34 PM [facility] CO2 25 21 - 32 mmol/L LAB CHEMISTRY METHOD 11/27/2024 6:34 PM [facility] Anion Gap 6 3 - 11 LAB CHEMISTRY METHOD 11/27/2024 6:34 PM [facility] Glucose 103(H) 70 - 100 mg/dL LAB CHEMISTRY METHOD 11/27/2024 6:34 PM [facility] BUN 27(H) 5 - 25 mg/dL LAB CHEMISTRY METHOD 11/27/2024 6:34 PM [facility] Creatinine 1.08 0.50 - 1.10 mg/dL LAB CHEMISTRY METHOD 11/27/2024 6:34 PM [facility] eGFR 53(L) >=60 mL/min/1. 73m2 LAB CHEMISTRY METHOD 11/27/2024 6:34 PM [facility] Comment:Calculation based on the??Chronic Kidney Disease Epidemiology Collaboration (CKD-EPI) equation refit??without adjustment for race. BUN/Creatinine Ratio 25.0 LAB CHEMISTRY METHOD 11/27/2024 6:34 PM [facility] Calcium 9.2 8.5 - 10.5 mg/dL LAB CHEMISTRY METHOD 11/27/2024 6:34 PM [facility] Blood Venous blood specimen / Unknown Venipuncture / Unknown 11/27/2024 3:09 PM EDT 11/27/2024 3:09 PM EDT us Rosa Maria ACUÑA LAB BLOOD ORDERABLES Final Resul t [facility] [address] [place] [address], * MG Mammo Digital Screening w Aristides bilat (10/24/2024 1:25 PM EST) Anatomical Region Laterality Modality Breast Bilateral Mammography 10/24/2024 2:42 PM EST Addenda Addendum by Aftab Spaulding MD on 10/27/2024 1:40 PM EST Addendum: Previous 08/04/2021, 02/02/2020, 10/04/2018 have become available and are compared. There has been no significant interval change. -------- ADDENDUM -------- Dictated By: Aftab Spaulding Dictated Date: 10/27/2024 13:39 ET Assigned Physician: Aftab Spaulding Reviewed and Electronically Signed By: Aftab Spaulding Signed Date: 10/27/2024 13:40 ET Workstation ID: [id number] Transcribed By: Self Edit Transcribed Date: 10/27/2024 13:39 ET Impressions 10/24/2024 2:58 PM EST No mammographic evidence of malignancy. ?? A negative mammogram in the presence of a clinically suspicious palpable abnormality does not preclude the possibility of malignancy or alter the indications for biopsy. ASSESSMENT: ?? BI-RADS 1: NEGATIVE RECOMMENDATION(S): 1: Routine screening mammogram BILATERAL in 1 year. [facility]: [facility] [address] [place], [address] -------- FINAL REPORT -------- Dictated By: Aftab Spaulding Dictated Date: 10/24/2024 14:42 ET Assigned Physician: Aftab Spaulding Reviewed and Electronically Signed By: Aftab Spaulding Signed Date: 10/24/2024 14:58 ET Workstation ID: [id number] Transcribed By: Self Edit Transcribed Date: 10/24/2024 14:46 ET Narrative 10/24/2024 2:58 PM EST EXAM: ??SCREENING MAMMOGRAPHY, BILATERAL HISTORY: ??SCREENING. ??No additional history. COMPARISON: ??None available TECHNIQUE: Synthesized CC and MLO projections of each breast. ??Tomosynthesis of each breast in the CC and MLO projections. ADDITIONAL IMAGING: None Computer-aided detection was employed with the iCAD ??ProFound AI 3-D. TISSUE DENSITY: The breasts are almost entirely fatty. (BI-RADS ??Category A) FINDINGS: RIGHT BREAST: No suspicious mass. No suspicious calcification. No distortion. ?? No additional suspicious right breast findings LEFT BREAST: No suspicious mass. No suspicious calcification. No distortion. ?? No additional suspicious left breast findings Heike Baird MD IMG BI PROCEDURES Edited Result - Final * Hemoglobin A1c (10/09/2024 11:10 AM EST) Hemoglobin A1C 6.1 <6.5 % LAB CHEMISTRY METHOD 10/09/2024 2:08 PM EST [facility] Mean Bld Glu Estim. 128 mg/dL LAB CHEMISTRY METHOD 10/09/2024 2:08 PM [facility] Blood Venous blood specimen / Unknown Venipuncture / Unknown 10/09/2024 11:10 AM EST 10/09/2024 11:10 AM EST Rosa Maria ACUÑA LAB BLOOD ORDERABLES Final Resul t [facility] [address] [place] [address], [place] [phone] * Lipid panel with reflex to direct LDL (09/19/2024 11:41 AM EST) Cholesterol 140 0 - 200 mg/dL LAB CHEMISTRY METHOD 09/19/2024 6:19 PM EST [facility] Triglycerides 81 0 - 150 mg/dL LAB CHEMISTRY METHOD 09/19/2024 6:19 PM [facility] HDL 59 >=40 mg/dL LAB CHEMISTRY METHOD 09/19/2024 6:19 PM EST [facility] LDL Calculated 65 0 - 100 mg/dL LAB CHEMISTRY METHOD 09/19/2024 6:19 PM EST [facility] VLDL Cholesterol Juma 16.2 mg/dL LAB CHEMISTRY METHOD 09/19/2024 6:19 PM EST [facility] Non HDL Chol. (LDL+VLDL) 81 <145 mg/dL LAB CHEMISTRY METHOD 09/19/2024 6:19 PM EST [facility] Chol/HDL Ratio 2.4 0.0 - 4.4 LAB CHEMISTRY METHOD 09/19/2024 6:19 PM EST [facility] Blood Venous blood specimen / Unknown Venipuncture / Unknown 09/19/2024 11:41 AM EST 09/19/2024 11:41 AM EST Bella Altamirano MD LAB BLOOD ORDERABLES Final Resul t [facility] [address] [place] [address], * DXA BONE DENSITY STUDY 1+ SITS AXIAL SKEL (07/09/2023 1:34 PM EST) Anatomical Region Laterality Modality Bone Densitometr y 05/10/2023 8:51 AM EDT Narrative 07/09/2023 7:33 PM EST BONE DENSITY SCAN (DEXA) ? FINDINGS: Lumbar Spine T-score is 0.8. ?? (SD relative to 20-29 y/o adult) Z-score is 3.3. ??(SD relative to age matched peers) This is considered normal by WHO criteria. Left Hip T-score is 1.6. Z-score is 3.7. This is considered normal by WHO criteria. Comparison: None. IMPRESSION: IMPRESSION: Normal bone mineral density by WHO criteria. The [facility] Department of Internal Medicine recommends using National Osteoporosis Foundation (NOF) guidelines in treatment decisions related to osteoporosis. NOF guidelines suggest considering treatment for postmenopausal women and men aged 50 or older presenting with the following: History of hip or vertebral fracture. T-score = -2.5 (DXA) at the femoral neck, total hip, or spine, after appropriate evaluation to exclude secondary causes. Low bone mass (T-score between -1.0 and -2.5 at the femoral neck or spine) AND a 10-year probability of a hip fracture = 3% OR a 10-year probability of a major osteoporosis-related fracture = 20% based on the [place]-adapted WHO algorithm Please note that all treatment decisions require clinical judgment and consideration of individual patient factors, including patient preferences, co-morbidities, previous drug use, risk factors not captured in the FRAX model (e.g., frailty, falls, vitamin D deficiency, increased bone turnover, interval significant decline in bone density) and possible under- or over-estimation of fracture risk by FRAX. Optional alternative screening schedule based on ole Conrad., [facility] September 14, 2011 for patients with osteopenia (based on hip BMD T-score) is as follows: * ??advanced osteopenia (T scores -2.00 to -2.49), BMD testing every year * ??moderate osteopenia (T scores -1.50 to -1.99), BMD testing every 5 years mild osteopenia or normal BMD (T scores -1.50 and higher), BMD testing every 15 years Procedure Note Gretta Ngo MD - 10/02/2023 BONE DENSITY SCAN (DEXA) FINDINGS: Lumbar Spine T-score is 0.8. (SD relative to 20-29 y/o adult) Z-score is 3.3. (SD relative to age matched peers) This is considered normal by WHO criteria. Left Hip T-score is 1.6. Z-score is 3.7. This is considered normal by WHO criteria. Comparison: None. IMPRESSION: IMPRESSION: Normal bone mineral density by WHO criteria. The [facility] Department of Internal Medicine recommendsusing National Osteoporosis Foundation (NOF) guidelines in treatment decisions related toosteoporosis. NOF guidelines suggest considering treatment for postmenopausal women and menaged 50 or older presenting with the following: History of hip or vertebral fracture. T-score = -2.5 (DXA) at the femoral neck, total hip, or spine, afterappropriate evaluation to exclude secondary causes. Low bone mass (T-score between -1.0 and -2.5 at the femoral neck or spine)AND a 10-year probability of a hip fracture = 3% OR a 10-year probability of a majorosteoporosis-related fracture = 20% based on the [place]-adapted WHO algorithm Please note that all treatment decisions require clinical judgment andconsideration of individual patient factors, including patient preferences, co- morbidities,previous drug use, risk factors not captured in the FRAX model (e.g., frailty, falls, vitaminD deficiency, increased bone turnover, interval significant decline in bone density) andpossible under- or over-estimation of fracture risk by FRAX. Optional alternative screening schedule based on erica Conrad al., [facility] for patients with osteopenia (based on hip BMD T-score) is as follows: * advanced osteopenia (T scores -2.00 to -2.49), BMD testing every year * moderate osteopenia (T scores -1.50 to -1.99), BMD testing every 5years mild osteopenia or normal BMD (T scores -1.50 and higher), BMD testingevery 15 years Joyce ACUÑA IM DXA PROCEDURES Final R esult * Urine Albumin Creatinine Ratio (05/10/2023) [facility] Urine Albumin Creatinine Ratio ABSTRACTED Historical Provider HEALTH MAINTENANCE Final Result * Hepatitis C Screening (05/25/2017) [facility] Hepatitis C Screening ABSTRACTED Historical Provider HEALTH MAINTENANCE Final Result from Last 3 Months or Most Recently Relevant to Health Maintenance [facility] Advance Directives Documents on File Type Date Recorded Patient Material [employer] Expl anation Health Care Decision (hx) 01/09/2024 HE ALTH CARE PROXY Health Care Decision (hx) 01/09/2024 HE ALTH CARE PROXY Health Care Decision (hx) 01/09/2024 HE ALTH CARE PROXY Care Teams Student Ministry Pastor Relationship Specialty Start Date End Date Heike Baird MD [address] [place] [id number] PCP - General Internal Medicine 08/17/20
== END 2024-12-19 10:28 | disposition home or self-care (01) ==
LOC: HO.HNS 09:29
PROVIDERS: PCP Internal Medicine; Visit Provider Physician Assistant
DX: M48.061 Spinal stenosis, lumbar region without neurogenic claudication (principal); M25.559 Pain in unspecified hip
CPT/HCPCS: 99204

== ENCOUNTER → 2024-12-19 10:09 | Outpatient (BNV) | payer MEDICARE, OTHER, SELFPAY | PROVIDERS: PCP Internal Medicine; Visit Provider Radiology Diagnostic Radiology | DX: M17.0 Bilateral primary osteoarthritis of knee (principal); M47.815 Spondylosis without myelopathy or radiculopathy, thoracolumbar region | CPT/HCPCS: 73522 ==